=== PATIENT | female | born 1965 | race Caucasian/White ===

== ENCOUNTER → 2017-03-26 12:16 | Outpatient (CLI) | payer BC ==
[2010-11-11 07:36] VITALS: BMI 23.0
== END | disposition home or self-care (01) ==
LOC: D.MAMMO 09:30
DX: Z12.31 Encounter for screening mammogram for malignant neoplasm of breast (principal)

== ENCOUNTER 2018-04-01 08:00 | Outpatient (CLI) | payer BC ==
[2010-11-11 07:36] VITALS: BMI 23.0
== END 2018-04-01 09:00 | disposition home or self-care (01) ==
LOC: D.MAMMO 08:00
DX: Z12.31 Encounter for screening mammogram for malignant neoplasm of breast (principal)

== ENCOUNTER 2019-04-09 09:00 | Outpatient (CLI) | payer BC ==
[2010-11-11 07:36] VITALS: BMI 23.0
== END 2019-04-09 10:00 | disposition home or self-care (01) ==
LOC: D.MAMMO 09:00
PROVIDERS: ATTEND Family Medicine
DX: Z12.31 Encounter for screening mammogram for malignant neoplasm of breast (principal)